=== PATIENT | male | born 1970 | race Native Hawaiian/Other Pacific Islander ===

== ENCOUNTER 2017-03-20 09:59 | Day surgery (SDC) | payer OTHER ==
[~2017-03-20] VITALS: Ht 30.5 cm; Wt 0.5 kg
[2017-03-20 10:18] LABS: PLATELET COUNT 380 K/uL (142-355)
[2017-03-20 10:22] LABS: POTASSIUM 4.1 mmol/L (3.6-5.2); SODIUM 135 mmol/L (136-145)
== END 2017-03-20 16:32 | disposition home or self-care (01) ==
LOC: OR 09:59
PROVIDERS: Student in an Organized Health Care Education/Training Program
PROC: 0FT44ZZ Resection of Gallbladder, Percutaneous Endoscopic Approach (ICD-10-PCS; principal; 2017-03-20)
DX: K81.1 Chronic cholecystitis (principal)
CPT/HCPCS: 36415; 80053; 85027; 87880; J0132; J0330; J0690; J1100; J1170; J2001; J2250; J2405; J2704; J2710; J2765; J3010; J3490; S0028